=== PATIENT | male | born 1995 | race Caucasian/White ===

== ENCOUNTER 2017-11-06 02:09 | Inpatient (IN) | payer OTHER, SELFPAY ==
[2017-11-06] VITALS (16 sets, daily range): BP systolic 117–159; BP diastolic 58–98; PULSE 70–111; RESP 12–36; TEMP 36.9–38.3; O2SAT 92–99; BMI 42.2
--- NOTE | 2017-11-06 02:23 | RAD_ITS ---
STUDY: X-RAY - ABDOMEN/PELVIS REASON FOR EXAM: Male, 22 years old. Lower abdominal pain TECHNIQUE: Two AP supine views of the abdomen and pelvis. COMPARISON: None. FINDINGS: Normal visualized lung bases. There is an unremarkable bowel gas pattern. There is no demonstrated free abdominal air. The visualized liver, spleen and kidneys are grossly normal in size and morphology. Normal soft tissue structures. Normal visualized osseous structures. RAD/Abdomen Single View IMPRESSION: Normal x-ray examination of the abdomen and pelvis. Electronically Signed: Nestor Quiroz MD at 3:52 EDT Tel , Service support ,
--- NOTE | 2017-11-06 02:31 | CT_ITS ---
STUDY: CT ABDOMEN AND PELVIS WITHOUT CONTRAST REASON FOR EXAM: Male, 22 years old. Constipation, lower abdominal pain, no bowel movement since Friday. RADIATION DOSAGE (If Supplied By Facility): CTDIvol = ( 24.09 ) mGy, DLP = ( 1347.95 ) mGycm TECHNIQUE: Transaxial 2.5 mm images were obtained from the dome of the diaphragm to the symphysis pubis without oral contrast, and without intravenous contrast. Sagittal and coronal images were reconstructed. This examination is limited for the evaluation of gastrointestinal, solid organs and vascular structures due to the lack of intravenous and oral contrast. Individualized dose optimization techniques were used for this CT. COMPARISON: None. FINDINGS: The visualized lung bases are unremarkable. The visualized portions of the heart are within normal limits. Normal liver. Normal gallbladder and extrahepatic biliary system. Normal spleen. Normal pancreas. Normal bilateral adrenal glands. Normal right kidney. Normal left kidney. Normal visualized stomach. Normal small intestine. Normal colon. There is a tubular, thick-walled retrocecal appendix (>9 mm), consistent with acute appendicitis. Significant inflammatory changes of the surrounding fat are noted with an indistinct ovoid soft tissue along the appendix tip measuring 2.2 x 4.6 x 1.6 cm ( AP x width x height ). Image 127 series 2, image 79 series 601, image 59 series 602. There are enlarged mesenteric lymph nodes in the right lower abdomen, trace fluid and inflammatory changes of the adjacent terminal ileum and cecum. There is trace pelvic fluid felt to be related to the appendicitis. Normal abdominal aorta. Normal inferior vena cava. Normal retroperitoneum. Normal urinary bladder. Normal abdominal wall. Obesity. Normal osseous structures. CT/Abdomen/Pelvis without Cont IMPRESSION: Acute appendicitis with significant inflammatory reaction/phlegmon and a focal soft tissue adjacent to the appendix tip. No true abscess formation detected. There is no perforation, small bowel or colonic obstruction. Reactive inflammatory changes with enlarged mesenteric lymph nodes, trace pelvic fluid, reactive changes of the adjacent small bowel and cecum. These findings were discussed on the telephone with Dr. Tee at 408 hrs. EST on 11/06/2017. Electronically Signed: Gloria Hodges MD at 4:14 EDT , Service support ,
[2017-11-06] MEDS: 0.9% Normal Saline 1,000 ML 1000 ML IV (02:53)
[2017-11-06 02:55] LABS: Absolute Neutrophil Count 13.1 X10^3/uL (2.0-7.7); Basophil# 0.03 X10^3/uL; Basophil% 0.2 % (0-1); Eosinophil# 0.09 X10^3/uL; Eosinophils% 0.5 % (0-5); Hematocrit 40.9 % (40-54); Hemoglobin 13.7 g/dl (13.0-16.5); Lymphocyte % 14.8 % (19-41); Mean Corp Hgb Conc 33.5 g/gl (32-36); Mean Corpuscular Hgb 26.8 pg (27.0-32.0); Mean Platelet Vol. 9.7 fl (6.2-12.0); Monocyte# 1.08 X10^3/uL; Monocyte% 6.4 % (0-10); Neutrophil # 13.12 X10^3/uL (2.7-7.7); Neutrophil % 77.7 % (47-70); Platelet Count 349 K/mm3 (150-450); RBC Distribution Width CV 13.1 % (11.6-14.6); RBC Distribution Width SD 37.7 fl (35.1-43.9); Red Blood Count 5.11 M/mm3 (4.6-6.2); White Blood Count 16.9 K/mm3 (4.4-11.0)
[2017-11-06 02:58] LABS: POSITIVE COUNT NO; POSITIVE DIFFERENTIAL NO; POSITIVE MORPHOLOGY NO
[2017-11-06] MEDS: Morphine 4 MG/ML Syringe IV ×2 (03:20→04:40)
[2017-11-06 03:32] LABS: ALB/GLOB Ratio 0.8 RATIO (0.9-2.4); AST(SGOT) 14 U/L (15-37); Alanine Aminotransfer ALT/SGPT 37 U/L (16-61); Albumin, Serum 3.6 g/dL (3.2-5.0); Alkaline Phosphatase 131 U/L (45-117); Anion Gap 12 (5-15); BUN 13 mg/dL (7-18); Calcium,Total 8.9 mg/dL (8.5-10.1); Chloride 105 mmol/L (98-107); Creatinine, Serum 1.08 mg/dL (0.70-1.30); EST Glomerular Filtration Rate 89 mL/min (>60); Est Glom Filt Rate - Afr Amer 108 mL/min (>60); Estimated Creatinine Clearance 126.05 ml/min; Globulin 4.4 g/dL (2.2-4.2); Glucose 134 mg/dL (74-106); Potassium 3.4 mmol/L (3.5-5.1); Sodium Level 141 mmol/L (136-145)
--- NOTE | 2017-11-06 03:32 | ED.VISSUMM ---
- ER Visit Summary Date of Service: 11/06/17 Chief Complaint: [Abdominal pain and constipation] History of Present Illness: The patient is a 22 M [who presents the emergency department with abdominal pain. It started today after lunch. He states it started in his epigastric region and radiated down to his right lower quadrant and suprapubic region. He states he has been constipated since Friday. He feels like he has to go but cannot. He denies any fevers or chills but has had sweats with the pain. He describes it as gas and cramping. He has had problems with constipation in the past but never this severe. He denies any nausea or vomiting. He is otherwise healthy.] Physical Examination: [] Blood pressure 136/77 other vitals within acceptable limits obese WN WD NAD PERRL EOMI MMM NECK supple and nontender, no masses RRR no murmur rub or gallop, no peripheral edema, symmetric radial pulses CTAB no respiratory distress ABDOMEN is soft tenderness in the right lower quadrant and suprapubic region normal bowel sounds, no distension, no rebound or guarding Rectal exam reveals no masses no stool in the rectal vault SKIN is warm and dry no rashes lightly pale Alert and Oriented x3, CN II-XII in tact, no motor or sensory deficits, gait normal No lymphadenopathy Ed course: [Initially KUB was ordered however I did become concerned that he had pain that was primarily in the right lower quadrant. At that point screening labs and CT were ordered. He was given fluids and morphine. He had a leukocytosis at 16.9. CT showed an acute appendicitis. Patient was given Zosyn. Dr. Troncoso was contacted and came into the emergency department to evaluate the patient with disposition to the operating room. [] Treatment Plan: [] Disposition: [opeRating room] Impression: [Acute appendicitis] This note was generated with [employer] dictation software. It may contain incorrect words, spelling, and punctuation that were not noted in review of the chart prior to signing ED Disposition - Plan for ED Patient: Disposition: Acute Care [facility] Chief Complaint: Constipation
[2017-11-06 04:42] LABS: Red Blood Cells-Urine 0 SEEN /hpf (0-5); Squamous Epithelial Cells - UA 0 SEEN /hpf (0-5)
[2017-11-06 04:44] LABS: Color, Urine Yellow (Yellow); Glucose, Dipstick Normal (Normal); Ketone-Dipstick Negative (Negative); Leukocyte Esterase-Dipstick Negative /ul (Negative); Nitrite-Dipstick Negative (Negative); Occult Blood-Urine 50 /ul (Negative); Protein-Dipstick 15 mg/dl (Negative); Urine Bilirubin Dipstick Negative (Negative); Urine Clarity Sl. Cloudy (Clear); Urine Urobilinogen Normal (Normal)
[2017-11-06 04:49] LABS: Bacteria RARE /hpf (None Seen); Mucous, Urine 1+ /hpf (<or=2+)
[2017-11-06 04:50] LABS: White Blood Cells 0-5 SEEN /hpf (0-5)
--- NOTE | 2017-11-06 05:08 | PCM.HP.STD ---
History of Present Illness Date of Admission: 11/06/17 The patient is a 22 year old M who developed low abdominal pain yesterday mid day. The pain became more severe and approximately 2 in the morning and presented to the [facility] emergency room. He notes pain in a bandlike pattern in the low abdomen. He has not had any previous abdominal surgery. He has had previous oral surgery without complication. He was noted to have elevated temperature of 99. White count is elevated at 16.9. There is a significant amount of inflammatory change at the tip the appendix with phlegmon. The patient is noted to be morbidly obese with a body weight of 337 pounds Past Medical History Allergies No Known Allergies Allergy (Verified 11/06/17 02:10) Home Medications: Ambulatory Orders Medication Instructions Recorded NK [NK] 11/06/17 Surgical History: - - Left dental oral surgery with tooth extraction Smoking Status: Current every day smoker Review of Systems Constitutional: Denies: Anorexia Eyes: Denies: Blurred vision HEENT: Denies: Difficulty Hearing Cardiovascular: Denies: Chest Pain Respiratory: Denies: Cough, Hemoptysis Gastrointestinal: Reports: Abdominal Pain Genitourinary: Denies: Dysuria Musculoskeletal: Denies: Arm Pain Skin: Denies: Dryness Neurological: Denies: Balance problems Psychiatric: Denies: Anxiety Endocrine: Denies: Change in Body Habitus Hematologic/ Lymphatic: Denies: Adenopathy VTE Information - Inpt Only VTE Present on Admission: No - Physical Exam General: Alert, Oriented x3, Cooperative, No apparent distress HEENT: Atraumatic Oral: Moist Mucosa Neck: Supple Lungs: Clear to auscultation Cardiovascular: Regular rate, Regular Rhythm Abdomen: Bowel Sounds Present, - - Patient is diffusely tender throughout the entire low abdomen with marked focal tenderness in the right lower quadrant guarding noted. Positive Rovsing sign Extremities: No clubbing Skin: No rashes Musculoskeletal: No Tenderness to Palpation of Joints or Extremities Lymphatic: No Cervical, Supraclavicular, or Inguinal Adenopathy Neurological: Cranial nerves II-XII grossly intact Psych/Mental Status: Normal Affect Vital Signs Temp Pulse Resp BP Pulse Ox 99.2 F H 79 12 138/67 H 94 11/06/17 04:43 11/06/17 04:43 11/06/17 04:43 11/06/17 04:43 11/06/17 04:43 Oxygen Delivery Method Room Air Weight: 337 lb 11.971 oz Body Mass Index (BMI) 42.2 Laboratory Tests Past 24 Hrs 11/06/17 11/06/17 11/06/17 02:50 02:50 04:35 WBC 16.9 H RBC 5.11 Hgb 13.7 Hct 40.9 MCV 80.0 MCH 26.8 L MCHC 33.5 RDW 13.1 RDW Differential 37.7 Plt Count 349 MPV 9.7 Immature Gran % (Auto) 0.400 Neut % (Auto) 77.7 H Lymph % (Auto) 14.8 L [place] % (Auto) 6.4 Eos % (Auto) 0.5 Baso % (Auto) 0.2 Absolute Neuts (auto) 13.1 H Absolute Lymphs (auto) 2.50 Total Counted Not Reportable Sodium 141 Potassium 3.4 L Chloride 105 Carbon Dioxide 24.0 Anion Gap 12 BUN 13 Creatinine 1.08 Estim Creat Clear Calc 126.05 Est GFR (MDRD) Af Amer 108 Est GFR (MDRD) Non-Af 89 BUN/Creatinine Ratio 12.0 Glucose 134 H Calcium 8.9 Total Bilirubin 0.40 AST 14 L ALT 37 Alkaline Phosphatase 131 H Total Protein 8.0 Albumin 3.6 Globulin 4.4 H Albumin/Globulin Ratio 0.8 L Urine Color Yellow Urine Clarity Sl. Cloudy Urine pH 6.0 Ur Specific [place] 1.020 Urine Protein 15 H Urine Glucose (UA) Normal Urine Ketones Negative Urine Occult Blood 50 H Urine Nitrite Negative Urine Bilirubin Negative Urine Urobilinogen Normal Ur Leukocyte Esterase Negative Urine RBC 0 SEEN Urine WBC 0-5 SEEN Ur Squamous Epith Cells 0 SEEN Urine Bacteria RARE Urine Mucus 1+ Assessment/Plan 22-year-old gentleman with advanced acute appendicitis. Although on CT there is not a suggestion of perforation the patient's morbid obesity and degree of inflammatory change and leukocytosis would suggest that there is a high probability of this. I do not believe that he is a candidate for nonoperative conservative measures. I am recommending a laparoscopic appendectomy. I discussed in detail the technique, benefits, risks, alternatives. No guarantees of success have been offered. The patient is aware that he may already have perforation drainage and ongoing antibiotic therapy may be required. We have initiated IV antibiotics and will proceed in a timely fashion with definitive surgery. Giovanni Troncoso M.D., F.A.C.S.
--- NOTE | 2017-11-06 05:30 | APP_PTH ---
PATIENT: ADALGISA GUZMAN LOC: [facility] U#:[id number] AGE/SX: 22/M ROOM: [facility]319 RE11/06/[address]: Dr. Giovanni Troncoso MD : 1995 BED: 1 DIS: 11/10/2017 SPEC #: [id number] RECD: 11/06/17 08:39 STATUS: CLARISSA RECristobal #: [id number] CORDELIA: 11/06/17 05:[address]: Giovanni Troncoso DEPT: SURGICAL PATHOLOGY RECD BY: Kamron Tobin ENTERED: 11/06/17 09:07 SP TYPE: APPENDIX OTHR DR: Ade Primary Care Phys Tissues: Appendix, NOS Procedures: Surgery Specimen Level III HEADER OPERATION: Laparoscopic appendectomy PRE-OP DIAGNOSIS: Acute appendicitis TISSUE SUBMITTED: Appendix MICROSCOPIC DIAGNOSIS Appendix, appendectomy: Acute appendicitis. Acute serositis. AM:anjelica 11/07/17 MICROSCOPIC DESCRIPTION Slides are reviewed. GROSS DESCRIPTION Received is one container labeled with the patient's name and designated appendix. The specimen consists of an appendix with attached periappendiceal adipose tissue in two pieces. The distal piece with surrounding hemorrhagic adipose tissue measures 4 x 3 x 1.5 cm. The proximal portion of appendix measures 6 cm in length and 1 cm in diameter. The serosal surface is congested and hemorrhagic. The area of separation between proximal and distal portion is congested and hemorrhagic and may represent the site of rupture. The lumen does not contain any fecalith. 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 / ALEXIS:anjelica 11/06/17 TC:2 CPT: 84329
[2017-11-06] MEDS: Bupivacaine Mpf 0.5% 30 ML VIAL (06:04)
--- NOTE | 2017-11-06 07:02 | DT_ITS ---
This patient was seen during an EMR downtime November 10, 2017 - November 17, 2017. This patient may have a combination of paper and electronic documentation or all paper documentation. All documentation is viewable within the e-chart portion of [employer] for each patient visit.
--- NOTE | 2017-11-06 07:08 | PCM.OPRPT ---
Problem List (1) Acute perforated appendicitis Status: Acute Report of Operation Date of Procedure: 11/06/17 Pre-Operative Diagnosis: Suspected acute perforated appendicitis Post-Operative Diagnosis: Acute perforated appendicitis Surgery/Procedure Performed:: Laparoscopic appendectomy with drainage Description of Surgical Findings:: Timeout and informed consent was obtained. 22-year-old gentleman with a body weight of 337 pounds to the operating room. Zosyn had been started intravenously in the emergency room. He underwent general ventricular-based anesthesia. The abdomen was sterilely prepped and draped. Static. Throughout the procedure total 30 cc was used. Skin sites were pre-anesthetized. A vertical infraumbilical incision was created. Holding sutures of 0 Vicryl placed. Varies needle inserted. Saline drop test performed. The abdomen was insufflated with CO2 to pressure of 12 mmHg pressure. Pulmonary trocar inserted. Vidya laparoscope inserted. No evidence of turgor injuries. There were acute inflammatory changes noted in the right lower quadrant with white purulent debris on the terminal ileum cloudy fluid within the pelvis and a marked phlegmon at the site of the appendix with a tremendously adherent terminal ileum. 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 Tedious blunt dissection was instituted gradually dissecting free the perforated appendix at the tip. The patient's morbid obesity made access and surgery extraordinarily difficult. An additional 5 mm trocar was placed in the right mid abdomen in addition to the suprapubic and low mid abdomen 5 mm trochars. Gradually and tediously the mesoappendix was dissected free and hemostasis obtained with Hem-o-lynn clips. Finally the base of the appendix could be identified. A 45 m standard height stapler was used to secure and transect at that location. The appendix was placed in retrieval bag and exited the umbilicus. The right lower quadrant and pelvis area were irrigated and aspirated free of the cloudy bloody fluid currently present. The wall of the inflammatory process demonstrated thickening of the pericecal area and retroperitoneum. This was irrigated. A 15 round JOSE drain was exited suprapubically and placed to the pelvis and right lower quadrant area. It was secured to skin with interrupted 3-0 nylon. The abdomen was now deflated of CO2 after trochars were removed. The fascia at the umbilicus approximated with interrupted 0 Vicryl figure 8 suture. Skin edges approximated up to 4 Monocryl subdermal stitches. Steri-Strips Telfa and OpSite dressings applied. Sponge and instrument and needle counts were reported to the surgeon be correct. Blood loss was minimal. He tolerated procedure well was taken to the recovery room in satisfactory condition. No apparent complication. Specimens appendix. Drains 15 round JOSE. Blood loss minimal. Giovanni Troncoso M.D., F.A.C.S.
--- NOTE | 2017-11-06 07:13 | PCM.DC.GS ---
Discharge Diet: Light diet - advance as tolerated - if you have questions about your diet instructions, please talk to you doctor. Discharge Activity: May Not Drive - for 1 week or while taking narcotic pain medicine. May shower in (days): 1 Lifting Restrictions: 10 pounds Call your doctor if your incision/area has: Continuous Slow Oozing, Sudden Increased Bleeding, Increased Pain/ Swelling, Increased Redness, Foul Smelling Discharge Call your doctor if you observe: Fever of 101 or Higher Suture Line Care: Avoid Pulling/Pushing, Avoid Pinching/Bending Additional Dressing/Incision Instructions:: Change or remove dressing in 4 days. Leave steri-strips in place for 1 week. Allergies/Adverse Reactions: Allergies No Known Allergies Allergy (Verified 11/06/17 02:10) Medications to take at Discharge NK [NK] 11/06/17 Primary Care Physician: Care Physician,No Primary [Primary Care Provider] - Please Follow Up With: Giovanni Troncoso MD - [phone] When: Call to make an appointment to be seen in about 10 days.
[2017-11-06] MEDS: 0.9% NaCl Peripheral Flush Adult/Peds IV (11:11)
[2017-11-06] MEDS: Morphine 2 MG/ML Syringe IV ×3 (11:11→16:39)
[2017-11-06] MEDS: Piperacil/Tazobactam 3.375 GM/50 ML ML IV ×2 (12:21→21:26)
[2017-11-06] MEDS: Lactated Ringers 1,000 ML 70 ML IV (14:13)
[2017-11-06] MEDS: HYDROcodone Bitartrate/Apap 5/325 Tablet PO (20:32)
[2017-11-07 02:30] VITALS: BP 136/60; PULSE 80; RESP 18; TEMP 37.9; O2SAT 93
[2017-11-07] MEDS: HYDROcodone Bitartrate/Apap 5/325 Tablet PO ×3 (02:41→18:20)
[2017-11-07] MEDS: Lactated Ringers 1,000 ML 70 ML IV (02:53)
[2017-11-07] MEDS: Piperacil/Tazobactam 3.375 GM/50 ML ML IV ×3 (05:45→22:42)
[2017-11-07] MEDS: Enoxaparin 40 MG/0.4 ML Syringe SC (05:47)
[2017-11-07 05:50] VITALS: TEMP 37.5
--- NOTE | 2017-11-07 06:00 | PCM.PN.SRG ---
Patient Problems: Active and Suspected Problems Acute perforated appendicitis (Acute) Subjective: Pt having pain. Only walked once yesterday. No flatus - Physical Exam General: Alert, Cooperative Lungs: Clear to auscultation, - - diminished in bases Abdomen: Hypoactive Bowel Sounds, Distended, - - obese serosanguinous JOSE output Vital Signs Temp Pulse Resp BP Pulse Ox 99.5 F H 80 18 136/60 H 93 11/07/17 05:50 11/07/17 02:30 11/07/17 02:30 11/07/17 02:30 11/07/17 02:30 Oxygen Flow Rate (L/min) 2 Oxygen Delivery Method Room Air Weight: 337 lb 11.971 oz Body Mass Index (BMI) 42.2 Intake and Output for Last 24 Hours 11/05/17 11/06/17 11/07/17 23:59 23:59 23:59 Intake Total 2792 / 2792 2534 / 2534 Output Total 1400 / 1400 1483 / 1483 Balance 1392 / 1392 1051 / 1051 Microbiology Past 72 Hours 11/06/17 Unknown Gram Stain - Final Fluid - Peritoneal Laboratory Tests Past 24 Hrs 11/07/17 05:45 WBC Pending RBC Pending Hgb Pending Hct Pending MCV Pending MCH Pending MCHC Pending RDW Pending RDW Differential Pending Plt Count Pending Neut % (Auto) Pending Absolute Neuts (auto) Pending Total Counted Pending Medical Necessity - Tobacco Use Smoking Status: Current every day smoker Assessment/Plan All Active Problems Acute perforated appendicitis (Acute) Continue IV antibiotics Labs and cultures pending
[2017-11-07 06:15] LABS: Absolute Lymphocyte Count 2.71 X10^3/ul (0.83-4.51); Basophil# 0.02 X10^3/uL; Basophil% 0.1 % (0-1); Eosinophil# 0.06 X10^3/uL; Eosinophils% 0.3 % (0-5); Hematocrit 39.2 % (40-54); Hemoglobin 12.4 g/dl (13.0-16.5); Lymphocyte # 2.71 X10^3/ul (4.0); Lymphocyte % 15.7 % (19-41); Mean Corp Hgb Conc 31.6 g/gl (32-36); Mean Corpuscular Hgb 26.1 pg (27.0-32.0); Mean Corpuscular Volume 82.5 fL (80-94); Mean Platelet Vol. 9.6 fl (6.2-12.0); Monocyte% 8.7 % (0-10); Neutrophil # 12.96 X10^3/uL (2.7-7.7); Neutrophil % 74.9 % (47-70); Platelet Count 283 K/mm3 (150-450); RBC Distribution Width CV 13.4 % (11.6-14.6); RBC Distribution Width SD 40.9 fl (35.1-43.9); Red Blood Count 4.75 M/mm3 (4.6-6.2); White Blood Count 17.3 K/mm3 (4.4-11.0)
[2017-11-07 06:34] LABS: POSITIVE COUNT NO; POSITIVE DIFFERENTIAL NO; POSITIVE MORPHOLOGY NO
[2017-11-07 13:08] VITALS: BP 127/87; PULSE 80; RESP 18; TEMP 37.4; O2SAT 95
--- NOTE | 2017-11-07 16:55 | PCM.PN.BLA ---
Progress Note NO flatus, no nausea Pain is slowly improving Leukocytosis noted Pt on Zosyn and alpha hemolytic org noted on Culture Continue treatment Check labs in a.mJaye Ceja
[2017-11-07 18:57] VITALS: BP 142/67; PULSE 87; RESP 18; TEMP 36.9; O2SAT 96
[2017-11-07 20:08] VITALS: BP 146/70; PULSE 85; RESP 14; TEMP 36.6; O2SAT 95
[2017-11-07] MEDS: Ondansetron 4 MG/2 ML Vial IV (20:18)
[2017-11-07] MEDS: Morphine 2 MG/ML Syringe IV (20:18)
--- NOTE | 2017-11-07 21:30 | NURSING ---
Pt experiencing gas pressure pain & nausea, encouraged ambulation in which he agreed. 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 Pt is non compliant with walking at this time.
[2017-11-08 03:29] VITALS: BP 135/63; PULSE 69; RESP 16; TEMP 36.9; O2SAT 92
[2017-11-08] MEDS: Piperacil/Tazobactam 3.375 GM/50 ML ML IV ×4 (05:45→21:15)
[2017-11-08] MEDS: Enoxaparin 40 MG/0.4 ML Syringe SC (05:47)
--- NOTE | 2017-11-08 06:15 | PCM.PN.SRG ---
Patient Problems: Active and Suspected Problems Acute perforated appendicitis (Acute) Subjective: Pt had hot flash last night requiring a fan Feels better this a.m. no flatus, no nausea - Physical Exam General: Alert, Cooperative, No apparent distress Lungs: Clear to auscultation, - - diminished in bases Abdomen: Soft, Hypoactive Bowel Sounds, Distended - JOSE serosanguinous Vital Signs Temp Pulse Resp BP Pulse Ox 98.5 F 69 16 135/63 H 92 11/08/17 03:29 11/08/17 03:29 11/08/17 03:29 11/08/17 03:29 11/08/17 03:29 Oxygen Flow Rate (L/min) 2 Oxygen Delivery Method Room Air Weight: 337 lb 11.971 oz Body Mass Index (BMI) 42.2 Intake and Output for Last 24 Hours 11/06/17 11/07/17 11/08/17 23:59 23:59 23:59 Intake Total 2792 / 2792 4017 / 4017 340 / 340 Output Total 1400 / 1400 2002 95 / 95 Balance 1392 / 1392 2013 245 / 245 Microbiology Past 72 Hours 11/06/17 Unknown Gram Stain - Final Fluid - Peritoneal Body Fluid Culture - Preliminary Alpha hemolytic organism Laboratory Tests Past 24 Hrs 11/07/17 05:45 WBC 17.3 H RBC 4.75 Hgb 12.4 L Hct 39.2 L MCV 82.5 MCH 26.1 L MCHC 31.6 L RDW 13.4 RDW Differential 40.9 Plt Count 283 MPV 9.6 Immature Gran % (Auto) 0.300 Neut % (Auto) 74.9 H Lymph % (Auto) 15.7 L [place] % (Auto) 8.7 Eos % (Auto) 0.3 Baso % (Auto) 0.1 Absolute Neuts (auto) 13.0 H Absolute Lymphs (auto) 2.71 Total Counted Not Reportable Medical Necessity - Tobacco Use Smoking Status: Current every day smoker Assessment/Plan All Active Problems Acute perforated appendicitis (Acute) OJSE has cleared and was removed today Cultures still pending Lab pending Pt encouraged to mobilize Possible dc later today. Outpt antibiotic selected
[2017-11-08] MEDS: Lactated Ringers 1,000 ML 30 ML IV ×2 (06:21→18:20)
[2017-11-08 06:48] LABS: Absolute Neutrophil Count 12.5 X10^3/uL (2.0-7.7); Basophil# 0.02 X10^3/uL; Basophil% 0.1 % (0-1); Eosinophil# 0.16 X10^3/uL; Eosinophils% 0.9 % (0-5); Hematocrit 38.6 % (40-54); Hemoglobin 12.3 g/dl (13.0-16.5); Lymphocyte % 18.4 % (19-41); Mean Corp Hgb Conc 31.9 g/gl (32-36); Mean Corpuscular Volume 81.6 fL (80-94); Mean Platelet Vol. 9.7 fl (6.2-12.0); Monocyte# 1.46 X10^3/uL; Monocyte% 8.4 % (0-10); Neutrophil # 12.51 X10^3/uL (2.7-7.7); Neutrophil % 71.9 % (47-70); Platelet Count 302 K/mm3 (150-450); RBC Distribution Width CV 13.3 % (11.6-14.6); RBC Distribution Width SD 40.2 fl (35.1-43.9); Red Blood Count 4.73 M/mm3 (4.6-6.2); White Blood Count 17.4 K/mm3 (4.4-11.0)
[2017-11-08 06:56] LABS: POSITIVE COUNT NO; POSITIVE DIFFERENTIAL NO; POSITIVE MORPHOLOGY NO
[2017-11-08 07:03] LABS: Anion Gap 8 (5-15); BUN 11 mg/dL (7-18); Calcium,Total 8.8 mg/dL (8.5-10.1); Chloride 100 mmol/L (98-107); EST Glomerular Filtration Rate 98 mL/min (>60); Est Glom Filt Rate - Afr Amer 118 mL/min (>60); Estimated Creatinine Clearance 136.14 ml/min; Glucose 92 mg/dL (74-106); Potassium 3.6 mmol/L (3.5-5.1); Sodium Level 136 mmol/L (136-145)
[2017-11-08 09:22] VITALS: BP 142/69; PULSE 92; RESP 16; TEMP 37; O2SAT 93
[2017-11-08 15:14] VITALS: BP 129/68; PULSE 79; RESP 18; TEMP 36.8; O2SAT 97
[2017-11-08 21:04] VITALS: BP 122/63; PULSE 77; RESP 18; TEMP 36.8; O2SAT 96
[2017-11-09 03:22] VITALS: BP 131/75; PULSE 81; RESP 18; TEMP 36.8; O2SAT 99
[2017-11-09] MEDS: Enoxaparin 40 MG/0.4 ML Syringe SC (05:41)
[2017-11-09] MEDS: Piperacil/Tazobactam 3.375 GM/50 ML ML IV ×2 (05:41→22:52)
[2017-11-09 08:21] LABS: Absolute Lymphocyte Count 2.75 X10^3/ul (0.83-4.51); Absolute Neutrophil Count 9.2 X10^3/uL (2.0-7.7); Basophil# 0.02 X10^3/uL; Basophil% 0.2 % (0-1); Eosinophil# 0.33 X10^3/uL; Eosinophils% 2.5 % (0-5); Hematocrit 40.6 % (40-54); Hemoglobin 13.1 g/dl (13.0-16.5); Lymphocyte # 2.75 X10^3/ul (4.0); Lymphocyte % 20.7 % (19-41); Mean Corp Hgb Conc 32.3 g/gl (32-36); Mean Corpuscular Hgb 26.1 pg (27.0-32.0); Mean Platelet Vol. 9.6 fl (6.2-12.0); Monocyte# 0.93 X10^3/uL; Neutrophil # 9.22 X10^3/uL (2.7-7.7); Neutrophil % 69.2 % (47-70); POSITIVE COUNT NO; POSITIVE DIFFERENTIAL NO; POSITIVE MORPHOLOGY NO; Platelet Count 378 K/mm3 (150-450); RBC Distribution Width CV 13.2 % (11.6-14.6); Red Blood Count 5.01 M/mm3 (4.6-6.2); White Blood Count 13.3 K/mm3 (4.4-11.0)
[2017-11-09 08:56] VITALS: BP 122/71; PULSE 65; RESP 18; TEMP 36.6; O2SAT 99
--- NOTE | 2017-11-09 10:45 | PN.SURG_ITS ---
Patient Problems: Active and Suspected Problems Acute perforated appendicitis (Acute) Subjective: Patient is moving about better today. Objective: Patient currently in the shower will come back and see him in and examine his wound later. - Physical Exam Vital Signs Temp Pulse Resp BP Pulse Ox 98 F 65 18 122/71 H 99 11/09/17 08:56 11/09/17 08:56 11/09/17 08:56 11/09/17 08:56 11/09/17 08:56 Oxygen Flow Rate (L/min) 2 Oxygen Delivery Method Room Air Weight: 337 lb 11.971 oz Body Mass Index (BMI) 42.2 Intake and Output for Last 24 Hours 11/07/17 11/08/17 11/09/17 23:59 23:59 23:59 Intake Total 4017 / 4017 2582 / 2582 1100 / 1100 Output Total 2002 1405 / 1405 1450 / 1450 Balance 2013 1177 / 1177 -350 / -350 Microbiology Past 72 Hours 11/06/17 Unknown Gram Stain - Final Fluid - Peritoneal Body Fluid Culture - Final Streptococcus pluranimalium Anaerobic Culture - Preliminary Checking for anaerobes, further studies to follow. Laboratory Tests Past 24 Hrs 11/09/17 08:05 WBC 13.3 H RBC 5.01 Hgb 13.1 Hct 40.6 MCV 81.0 MCH 26.1 L MCHC 32.3 RDW 13.2 RDW Differential 39.0 Plt Count 378 MPV 9.6 Immature Gran % (Auto) 0.400 Neut % (Auto) 69.2 Lymph % (Auto) 20.7 [place] % (Auto) 7.0 Eos % (Auto) 2.5 Baso % (Auto) 0.2 Absolute Neuts (auto) 9.2 H Absolute Lymphs (auto) 2.75 Total Counted Not Reportable Medical Necessity - Tobacco Use Smoking Status: Current every day smoker Assessment/Plan All Active Problems Acute perforated appendicitis (Acute) White count is coming down. Would probably benefit from another day of IV antibiotics. Antibiotics are appropriate for the streptococcal infection. Anaerobes are still pending.
[2017-11-09 14:21] VITALS: BP 121/66; PULSE 61; RESP 18; TEMP 36.8; O2SAT 99
[2017-11-09 21:30] VITALS: BP 130/74; PULSE 72; RESP 15; TEMP 36.6; O2SAT 97
[2017-11-10] VITALS: PULSE 72; RESP 15
--- NOTE | 2017-11-10 01:36 | NURSING ---
PLEASANT, ALERT. AMBULATING DOWN HALLS THIS KOKO. DENIES C/O ABD PAIN OR NAUSEA. VSS.
[2017-11-13 16:54] LABS: Basophil% 0.4 % (0-1); Eosinophils% 2.2 % (0-5); Hematocrit 36.5 % (40-54); Hemoglobin 11.6 g/dl (13.0-16.5); Lymphocyte % 23.2 % (19-41); Mean Corp Hgb Conc 31.8 g/gl (32-36); Mean Corpuscular Hgb 26.4 pg (27.0-32.0); Mean Platelet Vol. 10.7 fl (6.2-12.0); Monocyte% 9.2 % (0-10); POSITIVE COUNT NO; POSITIVE DIFFERENTIAL NO; POSITIVE MORPHOLOGY NO; Platelet Count 329 K/mm3 (150-450); RBC Distribution Width CV 13.7 % (11.6-14.6); RBC Distribution Width SD 40.5 fl (35.1-43.9); White Blood Count 10.6 K/mm3 (4.4-11.0)
[2017-11-13 16:55] LABS: Absolute Lymphocyte Count 2.46 X10^3/ul (0.83-4.51); Absolute Neutrophil Count 6.9 X10^3/uL (2.0-7.7); Basophil# 0.04 X10^3/uL; Eosinophil# 0.23 X10^3/uL; Lymphocyte # 2.46 X10^3/ul (4.0); Monocyte# 0.97 X10^3/uL
--- NOTE | 2017-11-24 13:52 | PCM.DC.SUM ---
Discharge Date and Diagnosis Date of Admission: 11/06/17 Date of Discharge: 11/09/17 - Primary Discharge Diagnosis Acute perforated appendicitis Hospital Course and Treatment Operations: appendectomy Summary of Care Provided: The patient is a 22 year old M with acute perforated appendicitis. Dr. Troncoso performed a laparoscopic appendectomy on 11/06/17. Patient tolerated the procedure well. He had a JOSE drain placed at the time of surgery. He was given IV antibiotics. Upon discharge, WBC was decreased. He denies nausea, vomiting, fever. JOSE drain was removed on POD #2. Patient had minimal generalized abdominal pain/discomfort. Discharge Diet: Light diet - advance as tolerated - if you have questions about your diet instructions, please talk to you doctor. Discharge Activity: May Not Drive - for 1 week or while taking narcotic pain medicine. May shower in (days): 1 Call your doctor if your incision/area has: Continuous Slow Oozing, Sudden Increased Bleeding, Increased Pain/ Swelling, Increased Redness, Foul Smelling Discharge Call your doctor if you observe: Fever of 101 or Higher Suture Line Care: Avoid Pulling/Pushing, Avoid Pinching/Bending Additional Dressing/Incision Instructions:: Change or remove dressing in 4 days. Leave steri-strips in place for 1 week. Home Medications: Medications to take at Discharge Hydrocodone Bitart/Apap 5-325 [[place] 5/325] 1 - 2 tablet PO Q6H PRN PRN 3 Days #10 tablet 11/07/17 Amoxicillin/Potassium Clav [Augmentin 875-125 Tablet] 1 ea PO BID #14 tab 11/08/17 Following Prescrptions Were Given to Patient: Hydrocodone Bitart/Apap 5-325 [[place] 5/325] 1 - 2 tablet PO Q6H PRN PRN 3 Days #10 tablet PRN Reason: Mild-Moderate (pain scale 1-5) Amoxicillin/Potassium Clav [Augmentin 875-125 Tablet] 1 ea PO BID #14 tab Primary Care Physician: Care Physician,No Primary [Primary Care Provider] - Please Follow Up With: Giovanni Troncoso MD - [phone] When: Call to make an appointment to be seen in about 10 days. Disposition: Home Minutes spent on discharge:: 20 Patient Condition:: Good Medical Necessity - Tobacco Use Smoking Status: Current every day smoker Meaningful Use Info Meaningful Use Diagnoses (Choose all that apply): None applicable Code Visit Inpatient E&M: 18620 Disch Hosp
--- NOTE | 2017-11-24 13:56 | DS.PCM_ITS ---
Discharge Date and Diagnosis Date of Admission: 11/06/17 Date of Discharge: 11/09/17 - Primary Discharge Diagnosis Acute perforated appendicitis Hospital Course and Treatment Operations: appendectomy Summary of Care Provided: The patient is a 22 year old M with acute perforated appendicitis. Dr. Troncoso performed a laparoscopic appendectomy on 11/06/17. Patient tolerated the procedure well. He had a JOSE drain placed at the time of surgery. He was given IV antibiotics. Upon discharge, WBC was decreased. He denies nausea, vomiting, fever. JOSE drain was removed on POD #2. Patient had minimal generalized abdominal pain/discomfort. Discharge Diet: Light diet - advance as tolerated - if you have questions about your diet instructions, please talk to you doctor. Discharge Activity: May Not Drive - for 1 week or while taking narcotic pain medicine. May shower in (days): 1 Call your doctor if your incision/area has: Continuous Slow Oozing, Sudden Increased Bleeding, Increased Pain/ Swelling, Increased Redness, Foul Smelling Discharge Call your doctor if you observe: Fever of 101 or Higher Suture Line Care: Avoid Pulling/Pushing, Avoid Pinching/Bending Additional Dressing/Incision Instructions:: Change or remove dressing in 4 days. Leave steri-strips in place for 1 week. Home Medications: Medications to take at Discharge Hydrocodone Bitart/Apap 5-325 [[place] 5/325] 1 - 2 tablet PO Q6H PRN PRN 3 Days # 10 tablet 11/07/17 Amoxicillin/Potassium Clav [Augmentin 875-125 Tablet] 1 ea PO BID #14 tab Following Prescrptions Were Given to Patient: Hydrocodone Bitart/Apap 5-325 [[place] 5/325] 1 - 2 tablet PO Q6H PRN PRN 3 Days # 10 tablet PRN Reason: Mild-Moderate (pain scale 1-5) Amoxicillin/Potassium Clav [Augmentin 875-125 Tablet] 1 ea PO BID #14 tab Primary Care Physician: Care Physician,No Primary [Primary Care Provider] - Please Follow Up With: Giovanni Troncoso MD - [phone] When: Call to make an appointment to be seen in about 10 days. Disposition: Home Minutes spent on discharge:: 20 Patient Condition:: Good Medical Necessity - Tobacco Use Smoking Status: Current every day smoker Meaningful Use Info Meaningful Use Diagnoses (Choose all that apply): None applicable Code Visit Inpatient E&M: 87249 Disch Hosp
== END 2017-11-10 14:15 | disposition home or self-care (01) | DRG 339 ==
LOC: ED 03:31 → SDC 04:59 → MS2 07:51 → SDC 11-07 14:48 → MS3 11-07 15:32
PROVIDERS: Admitting Provider Surgery; Emergency Provider Emergency Medicine; Visit Provider Surgery
PROC: 0DTJ4ZZ Resection of Appendix, Percutaneous Endoscopic Approach (ICD-10-PCS; CPT 44970; principal; 2017-11-06 05:30)
DX: K35.2 Acute appendicitis with generalized peritonitis (principal); Z68.41 Body mass index [BMI] 40.0-44.9, adult; E66.01 Morbid (severe) obesity due to excess calories; F17.200 Nicotine dependence, unspecified, uncomplicated
CPT/HCPCS: 36415; 74018; 74176; 80048; 80053; 81001; 85025; 87070; 87075; 87076; 87077; 87186; 87205; 88304; 97802; 99283; 99406; J7030; J7120; A4216; J2405

== ENCOUNTER 2018-10-19 14:01 | Emergency (ER) | payer OTHER, SELFPAY ==
[2018-10-19 14:01] VITALS: BP 162/87; PULSE 94; RESP 16; TEMP 36.1; O2SAT 97; BMI 41.1
--- NOTE | 2018-10-19 14:32 | ED.VISSUMM ---
- ER Visit Summary Date of Service: 10/19/18 Chief Complaint: Rectal bleeding History of Present Illness: The patient is a 23 M history of prior rectal bleeding with a fissure years ago. He is never had a colonoscopy. States today for no reason he started having rectal bleeding around 10 AM this morning and several episodes. No clots. He does not feel lightheaded or dizzy. He denies any rectal trauma. He is on no blood thinners. He denies any hematuria, nosebleeds or bruising. Denies any constipation or straining at stools. No history of internal hemorrhoids. Physical Examination: Well-appearing young male no acute distress. Vital signs are stable. He is afebrile. HEENT exam unremarkable. Neck nontender. Lungs clear to auscultation bilaterally. Heart regular rhythm no murmur. Abdomen soft and nontender. Normal bowel sounds no peritoneal signs. Remedies moves all 4. Neurovascular intact. Back nontender. Neurologic exam normal. Skin unremarkable no bruising. Rectal exam mild tenderness. No masses. Small amount of bright red blood. No melena. Test Results: CBC shows white count 11. Hemoglobin 14.6. Hematocrit of 44. Emergency Department Course and Treatment: Patient with rectal bleeding. Repeat exam at 1501 patient is doing well.. Treatment Plan: Outpatient follow-up for a possible colonoscopy. Patient has had an appendectomy by Dr. Giovanni Troncoso before wants to follow-up with him. Disposition: Discharge Impression: Acute rectal bleeding of uncertain etiology This note was generated with [employer] dictation software. It may contain incorrect words, spelling, and punctuation that were not noted in review of the chart prior to signing ED Disposition - Plan for ED Patient: Referrals: Care Physician,No Primary [Primary Care Provider] -
[2018-10-19 14:58] LABS: Hematocrit 44.1 % (40-54); Hemoglobin 14.6 g/dl (13.0-16.5); Mean Corp Hgb Conc 33.1 g/gl (32-36); Mean Corpuscular Hgb 26.8 pg (27.0-32.0); Mean Corpuscular Volume 81.1 fL (80-94); Mean Platelet Vol. 10.1 fl (6.2-12.0); Platelet Count 338 K/mm3 (150-450); RBC Distribution Width CV 13.3 % (11.6-14.6); RBC Distribution Width SD 39.5 fl (35.1-43.9); Red Blood Count 5.44 M/mm3 (4.6-6.2); White Blood Count 11.5 K/mm3 (4.4-11.0)
[2018-10-19 14:59] LABS: Scan Indicated on CBC? Y/N NO
--- NOTE | 2018-10-19 15:03 | ED.DEP ---
ED Disposition - Plan for ED Patient: Disposition: Home or Assisted Living Instructions: ED Hematochezia Stable Referrals: Giovanni Troncoso MD [STAFF PHYSICIAN] - 1-2 Weeks Additional Instructions: Your blood count is normal. : Follow-up with Dr. Giovanni Troncoso and he can do a outpatient colonoscopy on you if needed. Return to ER if bleeding gets significantly worse or passing large clots or feel lightheaded.
[2018-10-19 15:13] VITALS: BP 99/73; PULSE 82; RESP 18
== END 2018-10-19 15:15 | disposition home or self-care (01) ==
PROVIDERS: Emergency Provider Emergency Medicine
DX: K62.5 Hemorrhage of anus and rectum (principal)
CPT/HCPCS: 85027; 99283; A4216